=== PATIENT | male | born 1990 | race Caucasian/White ===

== ENCOUNTER 2018-05-11 15:47 | Emergency (ER) | payer OTHER, SELFPAY ==
[2018-05-11 15:51] VITALS: BP 136/80; PULSE 74; RESP 16; O2SAT 98
[2018-05-11 16:06] LABS: Bacteria Urine None Seen; RBC Urine None Seen (0-5/HPF)
[2018-05-11 16:07] LABS: Appearance Urine UA CLOUDY; Bilirubin Urine UA NEGATIVE (NEGATIVE); Color Urine UA YELLOW; Glucose Urine UA NEGATIVE (Normal); Ketones Urine UA NEGATIVE (NEGATIVE); Leukocyte Esterase Urine UA NEGATIVE (NEGATIVE); Nitrite Urine UA Negative (Negative); Occult Blood Urine UA NEGATIVE (Negative); Protein Urine UA TRACE (Negative); Specific Gravity Urine UA 1.015 (1.000-1.035); Urobilinogen Urine UA 0.2 E.U./dL (0.2); pH Urine UA 7.5 (4.5-8.0)
[2018-05-11 16:17] LABS: Amorphous Sediment Urine 3+; WBC Urine 5-10/HPF (0-5/HPF)
[2018-05-11 16:18] LABS: Culture Indicated Urine Specimen Cultured
--- NOTE | 2018-05-11 17:30 | ED_ITS ---
HPI - Male Genitourinary <SUKHDEEP Oliveira - Last Filed: 05/11/18 21:35> General Chief complaint: Urogenital-Male Stated complaint: thinks he has a UTI Time Seen by Provider: 05/11/18 16:52 History of Present Illness HPI Narrative: 28-year-old male here for complaint of having painful urination and whitish discharge from his penis over the last 3-4 days. He reports that he is in open marriage in as had changes in his sexual partners over the past few weeks. He denies any known exposure. He has no fevers or chills. No lesions he reports. He does report being active in anal sex. He denies any other concerns or complaints at this time. No abdominal pain no flank pain MD Complaint: penile discharge Review of Systems <SUKHDEEP Oliveira - Last Filed: 05/11/18 21:35> Constitutional Denies chills, Denies fever(s), Denies lethargy and Denies weakness Eyes Denies change in vision, Denies eye discharge, Denies irritation and Denies loss of vision ENT Ears, Nose, Mouth, and Throat: Denies change in voice, Denies neck pain and Denies sore throat Cardiovascular Denies chest pain, Denies irregular heart rhythm, Denies lightheadedness, Denies palpitations, Denies dyspnea, Denies dyspnea on exertion and Denies orthopnea Respiratory Denies cough, Denies dyspnea, Denies dyspnea on exertion and Denies wheezing Genitourinary Reports penile discharge Musculoskeletal Denies neck pain Integumentary/Breasts Denies pruritus, Denies erythema, Denies rash and Denies wounds Neurologic Denies confusion, Denies loss of vision and Denies weakness Psychiatric Denies anxiety, Denies confusion, Denies depression, Denies homicidal ideation and Denies suicidal ideation Endocrine Denies palpitations Hematologic/Lymphatic Denies easy bruising Allergic/Immunologic Denies wheezing Exam <SUKHDEEP Oliveira - Last Filed: 05/11/18 21:35> Initial Vital Signs Initial Vital Signs: Vital Signs Pulse Rate 74 05/11/18 15:51 Respiratory Rate 16 05/11/18 15:51 Blood Pressure 136/80 H 05/11/18 15:51 Pulse Oximetry 98 05/11/18 15:51 Const General: cooperative and well developed Nutritional Appearance: well nourished Orientation: alert, awake, oriented x3 and not confused [facility] Mouth: oral mucosae normal and moist mucous membranes Eyes Conjunctivae: conjunctivae normal Sclera: sclerae normal Pupils: PERRL Neck Neck: normal visual inspection, trachea midline, No lymphadenopathy, No midline deformity and No JVD Lymphatic: No lymphedema Resp Effort & Inspection: normal respiratory effort, able to speak in complete sentences, no respiratory distress and no use of accessory muscles Auscultation: clear to auscultation bilaterally, no rales, no rhonchi and no wheezes Cardio Rate: regular rate Rhythm: regular rhythm Heart Sounds: no click, no gallops, no murmurs and no rubs Penis: normal penis Meatus: meatal discharge Testes: normal <Crow Washington DO - Last Filed: 05/11/18 22:18> Initial Vital Signs Initial Vital Signs: Vital Signs Pulse Rate 74 05/11/18 15:51 Respiratory Rate 16 05/11/18 15:51 Blood Pressure 136/80 H 05/11/18 15:51 Pulse Oximetry 98 05/11/18 15:51 Course <SUKHDEEP Oliveira - Last Filed: 05/11/18 21:35> Orders Ordered: ED Orders 05/11/18 16:00 Urinalysis and Microscopic Stat Urine Chlamydia Gonorrhea PCR Stat Urine Culture Stat Discontinued Medications Azithromycin (Zithromax) 1,000 mg PO NOW ONE Stop: 05/11/18 18:28 Last Admin: 05/11/18 18:53 Dose: 1,000 mg Ceftriaxone Sodium (Rocephin) 250 mg IM NOW ONE Stop: 05/11/18 18:28 Last Admin: 05/11/18 18:54 Dose: 250 mg Vital Signs - 8 hr 05/11/18 15:51 05/11/18 19:14 Pulse Rate 74 81 Respiratory Rate 16 15 Blood Pressure 136/80 H Blood Pressure [Left Arm] 125/74 H Pulse Oximetry 98 99 <Crow Washington DO - Last Filed: 05/11/18 22:18> Orders Ordered: ED Orders 05/11/18 16:00 Urinalysis and Microscopic Stat Urine Chlamydia Gonorrhea PCR Stat Urine Culture Stat Discontinued Medications Azithromycin (Zithromax) 1,000 mg PO NOW ONE Stop: 05/11/18 18:28 Last Admin: 05/11/18 18:53 Dose: 1,000 mg Ceftriaxone Sodium (Rocephin) 250 mg IM NOW ONE Stop: 05/11/18 18:28 Last Admin: 05/11/18 18:54 Dose: 250 mg Vital Signs - 8 hr 05/11/18 15:51 05/11/18 19:14 Pulse Rate 74 81 Respiratory Rate 16 15 Blood Pressure 136/80 H Blood Pressure [Left Arm] 125/74 H Pulse Oximetry 98 99 MDM - Male Genitourinary <SUKHDEEP Oliveira - Last Filed: 05/11/18 21:35> Lab Data Lab Results 05/11/18 05/11/18 Range/Units 16:00 16:00 Urine Color Yellow Urine Appearance Cloudy Urine pH 7.5 (4.5-8.0) Ur Specific [place] 1.015 (1.000-1.035) Urine Protein Trace H (Negative) Urine Glucose (UA) Negative (Normal) g/dL Urine Ketones Negative (NEGATIVE) Urine Occult Blood Negative (Negative) Urine Nitrate Negative (Negative) Urine Bilirubin Negative (NEGATIVE) Urine Urobilinogen 0.2 (0.2) E.U./dL Ur Leukocyte Esterase Negative (NEGATIVE) Urine RBC None seen (0-5/HPF) Urine WBC 5-10/hpf H (0-5/HPF) Amorphous Sediment 3+ Urine Bacteria None seen (None) Ur Culture Indicated? Specimen cultured Micro UA Comment Not Reportable Ur Chlamydia DNA (PCR) Not detected N gonorrhoeae DNA (PCR) Detected H MDM Narrative Medical decision making narrative: Urine GC and Chlamydia indicates positive gonorrhea. He was treated with Rocephin and is a throw mycin in the emergency room. Offered other STD testing he said he would rather follow up with his regular doctor for further testing. He is encouraged to inform his partners and abstain from intercourse until they are seen and treated. Follow up with primary care provider later this week. Return emergency room for any worsening symptoms. <Crow Washington DO - Last Filed: 05/11/18 22:18> Lab Data Lab Results 05/11/18 05/11/18 Range/Units 16:00 16:00 Urine Color Yellow Urine Appearance Cloudy Urine pH 7.5 (4.5-8.0) Ur Specific [place] 1.015 (1.000-1.035) Urine Protein Trace H (Negative) Urine Glucose (UA) Negative (Normal) g/dL Urine Ketones Negative (NEGATIVE) Urine Occult Blood Negative (Negative) Urine Nitrate Negative (Negative) Urine Bilirubin Negative (NEGATIVE) Urine Urobilinogen 0.2 (0.2) E.U./dL Ur Leukocyte Esterase Negative (NEGATIVE) Urine RBC None seen (0-5/HPF) Urine WBC 5-10/hpf H (0-5/HPF) Amorphous Sediment 3+ Urine Bacteria None seen (None) Ur Culture Indicated? Specimen cultured Micro UA Comment Not Reportable Ur Chlamydia DNA (PCR) Not detected N gonorrhoeae DNA (PCR) Detected H Discharge Plan Departure Patient Disposition: Home, Self-Care Clinical Impression: Gonorrhea in male Discharge Date/Time: 05/11/18 19:18 Interventions: ED Discharge Assessment Last Done: 05/11/18 19:18 Instructions: Gonorrhea Activity Restrictions/Additional Instructions: Urinalysis was positive for gonorrhea. You were prescribed antibiotics in the emergency room. Follow up with primary care provider later this week for re- evaluation. Notify partners of the diagnosis. Abstain from intercourse until they are seen and treated. For any worsening symptoms return to the emergency room. Referrals: [facility] [Provider Group] <Crow Washington DO - Last Filed: 05/11/18 22:18> Cosign ED Attending Mamie Attestation: I was available for consultation during this patient's emergency department encounter
[2018-05-11 17:37] LABS: Urine Chlamydia NOT DETECTED
[2018-05-11] MEDS: AZITHROMYCIN 250 MG TABLET 1000 MG PO (18:53)
[2018-05-11] MEDS: cefTRIAXone 500 MG VIAL 250 MG IM (18:54)
[2018-05-11 19:14] VITALS: BP 125/74; PULSE 81; RESP 15; O2SAT 99
--- NOTE | 2018-05-13 14:02 | PC.NURSE ---
-Late Entry: Confidential Sexually Transmitted Disease Report filled out and faxed to the [facility] [phone].
[2018-05-14 11:42] LABS: Urine N gonorrhoeae DETECTED
--- NOTE | 2018-05-14 11:45 | PC.NURSE ---
Received call from the lab w/ + Chlamydia results for patient. Pt known positive in ED and treated w/ azthyromycin and ceftriaxone on date of visit. [facility] paperwork faxed w/ copy to medical records.
== END 2018-05-11 19:18 | disposition home or self-care (01) ==
PROVIDERS: Emergency Medicine; Emergency Provider Nurse Practitioner Family
DX: A54.9 Gonococcal infection, unspecified (principal)
CPT/HCPCS: 81001; 87086; 87491; 87591; 96372; 99282; 99283; J0696

== ENCOUNTER → 2021-05-08 13:14 | Outpatient (CLI) | payer OTHER, SELFPAY ==
--- NOTE | 2021-05-08 | DI.ECHO.S_ITS ---
[facility]---------+ [facility] +---------+ : : [address] : [address] : : : : [id number] : : : : Phone: [phone]+ Echocardiogram Report + + :Name: ENMANUEL CHU Study Date: 05/08/2021 Height: 71 in : :[facility] ReadingLocation: Weight: 165 lb : : Gender: Male BSA: 1.9 m2 : :: 1990 Age: 31 yrs BP: 120/75 mmHg: :Reason For Study: ENCOUNTER FOR GENERAL ADULT MEDICAL EXAM : :Ordering Physician: NIKHIL, : :RASHIDA Performed By: Bernadine Mason : :Referring: RASHIDA TEJEDA : + + Interpretation Summary Normal echo study. Procedure: A two-dimensional transthoracic echocardiogram with color flow and Doppler was performed. The study quality was technically adequate. There is no prior echocardiogram noted for this patient. The patient was in sinus rhythm with heart rates between 66-75 bpm during the exam. Left Ventricle: The left ventricle is normal in size and wall thickness. The ejection fraction is estimated to be 60-65%. Left ventricular wall motion is normal. Diastolic parameters suggest probable normal left ventricular diastolic function and normal filling pressures. Right Ventricle: The right ventricle is normal in size and function. Atria: Both atria are normal in size. There is no Doppler evidence for an interatrial shunt. Mitral Valve: The mitral valve is normal in structure and function. There is trace mitral regurgitation. Aortic Valve: The aortic valve is trileaflet. The aortic valve opens well. There is no aortic valve stenosis. No aortic regurgitation is present. Tricuspid Valve: The tricuspid valve is normal in structure and function. There is trace tricuspid regurgitation. Pulmonary artery pressures cannot be estimated because of the lack of a measurable TR jet velocity but the IVC suggests a CVP of around 3 mmHg. Pulmonic Valve: The pulmonic valve leaflets are thin and pliable; valve motion is normal. There is no pulmonic valvular regurgitation. Great Vessels: The aortic root is normal size. The dimensions of the ascending aorta are normal. The IVC is of normal diameter and collapses greater than 50% with a sniff. This suggests a low right atrial pressure of 3 mm Hg. Pericardium/ Pleura There is no pericardial effusion. There is no pleural effusion. MMode/2D Measurements & Calculations LVIDd: 4.4 cm LVOT diam: 2.3 cm LVIDs: 2.9 cm Ao root diam: 2.8 cm FS: 34.8 % asc Aorta Diam: 3.0 cm EPSS: 0.68 cm IVSd: 0.82 cm LVPWd: 0.83 cm LV amaya. diameter/BSA (cm/m^2): 2.3 LV sys. diameter/BSA (cm/m^2): 1.5 LA A2 area: 14.6 cm2 RA long axis: 4.2 cm LA A4 area: 11.6 cm2 RA area: 13.1 cm2 LA length (vol): 4.1 cm RA vol: 34.6 ml LA vol: 35.2 ml RA : 17.8 ml/m2 LA vol index: 18.1 ml/m2 IVC diam: 1.1 cm RVD1 (basal): 3.3 cm TAPSE: 1.9 cm Doppler Measurements & Calculations Ao V2 max: 110.1 cm/sec LVOT Max Albert: 101.8 cm/sec Ao V2 mean: 79.6 cm/sec LV V1 max P.1 mmHg Ao max P.8 mmHg LV V1 VTI: 20.2 cm Ao mean P.8 mmHg ESTRELLA(I,D): 3.7 cm2 Ao V2 VTI: 21.5 cm ESTRELLA(V,D): 3.7 cm2 sev ratio: 0.94 ESTRELLA indexed to BSA (cm^2/m^2): 1.9 MV E max albert: 52.3 cm/sec PA V2 max: 106.2 cm/sec MV A max albert: 44.3 cm/sec PA V2 mean: 75.8 cm/sec MV E/A: 1.2 PA mean P.6 mmHg Med Peak E' Albert: 11.1 cm/sec PA pr(Accel): 19.1 mmHg E/E' med: 4.7 Lat Peak E' Albert: 13.2 cm/sec E/E' lat: 4.0 E/e' average: 4.3 MV dec time: 0.24 sec SV(LVOT): 80.2 ml Electronically signed by: Fely Hill on Reading Physician:05/09/2021 09:36 AM
== END ==
PROVIDERS: Referring Provider Physician Assistant; Visit Provider Physician Assistant
DX: Z00.00 Encounter for general adult medical examination without abnormal findings (principal)
CPT/HCPCS: 93306